=== PATIENT | female | born 1980 | race Caucasian/White ===

== ENCOUNTER 2020-09-01 21:05 | Observation (INO) | payer OTHER, SELFPAY ==
[2020-09-01] VITALS (11 sets, daily range): BP systolic 85–127; BP diastolic 49–74; PULSE 69–104; RESP 14–19; TEMP 35.7–36.8; O2SAT 96–100; BMI 27.4
--- NOTE | 2020-09-01 21:20 | US_ITS ---
EXAM: US PELVIS TRANSABDOMINAL, COMPLETE : 1980 CLINICAL INDICATION: Vaginal bleeding w/ clots Had miscarriage 4 weeks ago at 14 weeks TECHNIQUE: Transabdominal pelvic ultrasound was performed with grayscale and color Doppler imaging. This report was created using [employer] report [employer] technology. COMPARISON: None. FINDINGS: UTERUS/CERVIX: Uterus measures 12.7 x 6.8 x 8.5 cm. The endometrium is distended with fluid. This fluid collection measures roughly 8.9 x 2.8 x 2.6 cm. There is a small amount of fluid within the cervix. Anteverted. There is no uterine mass. RIGHT OVARY: The right ovary measures 5.3 x 3.4 x 4.3 cm. Blood flow is present in the right ovary. LEFT OVARY: The left ovary is not visualized. FREE FLUID: There is fluid within the cul-de-sac. BLADDER: The bladder measures 6.4 x 2.8 x 9.6 cm. OTHER FINDINGS: There is a 4.0 x 2.7 x 3.2 cm anechoic structure compatible with a cyst. US/Transvaginal Non- IMPRESSION: 1. Fluid distending the endometrium. 2. Anechoic structure in the right ovary compatible with a cyst. Left ovary was not visualized. at 2244 Reported and signed by: Roel Espinoza MD Electronically Signed: Roel Espinoza MD at 22:43 EDT Tel , Service support ,
--- NOTE | 2020-09-01 21:36 | ED.VIS.FEGU ---
HPI HPI - Female History of Present Illness Chief Complaint: Vag Bleeding Informant: patient Pain Pain: Positive for Pelvic Pain Onset: Today Timing: Continuous Quality: Positive for Cramping Location: Suprapubic Bleeding Issue: Positive for Vaginal bleeding and Passing clots Onset: Today Context: Sudden Onset Timing: Continuous Current Severity: Heavy Associated Symptoms P: 10 Ab: 4 Narrative Narrative: Patient presents with vaginal bleeding that became severe today. Patient had a recent miscarriage 4 weeks ago. Patient states she was pulling weeds today. Patient states that later she started having heavy vaginal bleeding. Patient states she is passing clots. 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 Patient denies any dysuria. Patient admits to some lower abdominal cramping. Patient states she does not know her blood type but knows that she does not need the RhoGam shot. PFSH PFSH Home Medications NK 09/01/20 [History Last Taken Unknown] Allergy/AdvReac Type Severity Reaction Status Date / Time No Known Allergies Allergy Verified 09/01/20 21:13 Surgical History (Updated 09/01/20 @ 23:[address] Nicole Leach MD) History of D&C History of salpingectomy Social History Smoking Status: Never smoker ROS ROS ED Constitutional Constitutional ED: Denies chills or fever(s) Eyes Eyes: Denies blurry vision or change in vision ENT ENT ED: Denies rhinorrhea or sore throat Cardiovascular Cardiovascular: Denies chest pain or palpitations Respiratory/Chest Respiratory/Chest: Denies cough or dyspnea Gastrointestinal Gastrointestinal: Reports abdominal pain; Denies nausea or vomiting Genitourinary Genitourinary ED: Denies dysuria or urinary frequency Musculoskeletal Musculoskeletal: Denies back pain or neck pain Integumentary Denies abscess or rash Neurologic Neurologic: Denies headache(s) or weakness Allergic/Immunologic Allergic/Immunologic ED: Denies mouth swelling or urticaria EXAM Physical Exam Const Vital Signs: 09/01/20 21:10 09/01/20 21:45 09/01/20 22:57 Temperature 96.7 F L Temperature Source Oral Pulse Rate 104 H 99 69 Respiratory Rate 14 16 17 Blood Pressure 127/74 H 104/49 L 85/51 L Blood Pressure Mean 91 67 62 Pulse Ox 96 100 100 Oxygen Delivery Method Room Air Room Air Nasal Cannula Oxygen Flow Rate (L/min) 2 09/01/20 23:04 Temperature Temperature Source Pulse Rate 87 Respiratory Rate 16 Blood Pressure 99/62 Blood Pressure Mean 74 Pulse Ox 100 Oxygen Delivery Method Nasal Cannula Oxygen Flow Rate (L/min) 2 Positive well nourished and well developed General Appearance ED: well developed HEENT Reports moist mucous membranes Neck supple and no JVD Resp normal respiratory effort and clear to auscultation bilaterally Cardio regular rate and regular rhythm GI soft to palpation and non-distended Palpation: tender LLQ, RLQ and suprapubic; Negative for guarding Neuro oriented x3, CN's II-XII intact bilaterally and no sensory deficits noted Sensorium / Orientation: alert Motor Exam: strength 5/5 throughout Psych mental status grossly normal MDM MDM MDM Narrative Medical decision making narrative: Patient was given IV fluids. CBC shows a hemoglobin of 10.3 hematocrit 32.3. Platelets were 141. PT with INR and PTT were normal. Comprehensive metabolic profile was essentially within normal limits. Quantitative hCG was 230. Blood type is A-. Ultrasound showed fluid distending the endometrium and a right ovarian cyst. After ultrasound was obtained, patient passed a large clot and tissue. Patient states she was feeling better after this and her cramping was improving. Case was discussed with Dr. Nicole Leach. She was in to evaluate the patient. She will take the patient for D&C. Patient understood and was agreeable with the plan. All questions were answered. Lab Data Attestation: I reviewed the patient's lab results. Labs: Laboratory Results - last 24 hr 09/01/20 09/01/20 09/01/20 21:25 21:25 21:35 WBC 6.2 RBC 3.58 L Hgb 10.3 L Hct 32.3 L MCV 90.2 MCH 28.8 MCHC 31.9 L RDW Std Deviation 42.1 RDW Coeff of Priyanka 12.7 Plt Count 141 L MPV 10.5 Immature Gran % (Auto) 0.300 Neut % (Auto) 61.3 Lymph % (Auto) 29.1 [place] % (Auto) 6.9 Eos % (Auto) 2.1 Baso % (Auto) 0.3 Absolute Neuts (auto) 3.8 Absolute Lymphs (auto) 1.81 Nucleated RBC % 0 PT 13.3 INR 1.1 APTT 27.0 Sodium 139 Potassium 3.4 L Chloride 109 H Carbon Dioxide 22.0 Anion Gap 8 BUN 19 H Creatinine 0.62 Estim Creat Clear Calc 107.45 Est GFR (MDRD) Af Amer 136 Est GFR (MDRD) Non-Af 112 BUN/Creatinine Ratio 30.5 H Glucose 124 H Calcium 8.0 L Total Bilirubin 0.30 AST 11 L ALT 14 Alkaline Phosphatase 39 L Total Protein 6.6 Albumin 3.4 Globulin 3.2 Albumin/Globulin Ratio 1.1 HCG, Quant Blood Type Antibody Screen Crossmatch 09/01/20 09/01/20 09/01/20 21:35 21:35 21:35 WBC RBC Hgb Hct MCV MCH MCHC RDW Std Deviation RDW Coeff of Priyanka Plt Count MPV Immature Gran % (Auto) Neut % (Auto) Lymph % (Auto) [place] % (Auto) Eos % (Auto) Baso % (Auto) Absolute Neuts (auto) Absolute Lymphs (auto) Nucleated RBC % PT INR APTT Sodium Potassium Chloride Carbon Dioxide Anion Gap BUN Creatinine Estim Creat Clear Calc Est GFR (MDRD) Af Amer Est GFR (MDRD) Non-Af BUN/Creatinine Ratio Glucose Calcium Total Bilirubin AST ALT Alkaline Phosphatase Total Protein Albumin Globulin Albumin/Globulin Ratio HCG, Quant 230 H Blood Type A NEGATIVE Antibody Screen NEGATIVE Crossmatch See Detail Radiography Diagnostic Testing: Radiology Impression Transvaginal US 09/01/20 21:20 IMPRESSION: 1. Fluid distending the endometrium. 2. Anechoic structure in the right ovary compatible with a cyst. Left ovary was not visualized. at 2244 Reported and signed by: Roel Espinoza MD Electronically Signed: Roel Espinoza MD at 22:43 EDT Tel , Service support , Treatment and Re-Evaluation Vital Sign Attestation:: Vital signs were reviewed prior to admission. They are stable. Discharge Plan Dx/Rx/DC Orders Clinical Impression: Incomplete spontaneous complicated by delayed or excessive hemorrhage, Acute blood loss anemia Disposition Disposition: [facility]
[2020-09-01 21:40] LABS: Absolute Lymphocyte Count 1.81 X10^3/uL (0.83-4.51); Absolute Neutrophil Count 3.8 X10^3/uL (2.0-7.7); Basophil# 0.02 X10^3/uL; Basophil% 0.3 % (0-1); Eosinophil# 0.13 X10^3/uL; Eosinophils% 2.1 % (0-5); Hematocrit 32.3 % (37-47); Hemoglobin 10.3 g/dL (12.0-15.0); Lymphocyte # 1.81 X10^3/ul (0.83-4.51); Lymphocyte % 29.1 % (19-41); Mean Corp Hgb Conc 31.9 g/dL (32-36); Mean Corpuscular Hgb 28.8 pg (27.0-32.0); Mean Corpuscular Volume 90.2 fL (81-99); Mean Platelet Vol. 10.5 fl (6.2-12.0); Monocyte# 0.43 X10^3/uL; Monocyte% 6.9 % (0-10); NRBC Flagged by Analyzer 0 % (0-5); Neutrophil # 3.81 X10^3/uL (2.7-7.7); Neutrophil % 61.3 % (47-70); Platelet Count 141 K/mm3 (150-450); RBC Distribution Width CV 12.7 % (11.6-14.6); RBC Distribution Width SD 42.1 fl (35.1-43.9); Red Blood Count 3.58 M/mm3 (4.2-5.4); White Blood Count 6.2 K/mm3 (4.4-11.0)
[2020-09-01] MEDS: 0.9% Normal Saline 1,000 ML 1000 ML IV (21:44)
[2020-09-01 22:00] LABS: ALB/GLOB Ratio 1.1 RATIO (0.9-2.4); AST(SGOT) 11 U/L (15-37); Alanine Aminotransfer ALT/SGPT 14 U/L (13-56); Albumin, Serum 3.4 g/dL (3.2-5.0); Alkaline Phosphatase 39 U/L (45-117); Anion Gap 8 (5-15); BUN 19 mg/dL (7-18); BUN/Creat Ratio 30.5 RATIO (10-20); Chloride 109 mmol/L (98-107); Creatinine, Serum 0.62 mg/dL (0.55-1.02); EST Glomerular Filtration Rate 112 mL/min (>60); Est Glom Filt Rate - Afr Amer 136 mL/min (>60); Estimated Creatinine Clearance 107.45 ml/min; Globulin 3.2 g/dL (2.2-4.2); Glucose 124 mg/dL (74-106); Potassium 3.4 mmol/L (3.5-5.1); Protein, Total 6.6 g/dL (6.4-8.2); Sodium Level 139 mmol/L (136-145)
[2020-09-01 22:07] LABS: hCG Titer Quant., Serum 230 mIU/mL (1-3)
[2020-09-01 22:09] LABS: International Normalized Ratio 1.1; Prothrombin Time (Protime)PT. 13.3 SECONDS (11.7-14.9)
[2020-09-01] MEDS: 0.9% Normal Saline 1,000 ML 999 ML IV ×2 (23:02→23:04)
--- NOTE | 2020-09-01 23:09 | HP.PCM.OB_ITS ---
HPI - General General Date of Admission: 09/02/20 HPI Narrative ASIM BOWLING, is a 40 F 14 para 10 who presents with heavy vaginal bleeding. She reports approximately 14-week gestation followed by a loss about 4 weeks ago with heavy vaginal bleeding which subsequently resolved. Following gardening today she reported onset of heavy vaginal bleeding. She reports lightheadedness and feeling hot. PFSH Home Medications ferrous sulfate 325 mg PO BID #30 tab 09/02/20 [Rx Last Taken Unknown] Allergy/AdvReac Type Severity Reaction Status Date / Time No Known Allergies Allergy Verified 09/01/20 21:13 Surgical History History of D&C History of salpingectomy Social History Smoking Status: Never smoker History 14 Elective abortions Hx Para 10 Spontaneous abortions 3 Hx # Term Pregnancies Ectopic pregnancies 1 Hx # Pregnancies Multiple births # of living children 10 Vital Signs Vital Signs Vital Signs: 09/01/20 21:10 09/01/20 21:45 09/01/20 22:57 Temperature 96.7 F L Temperature Source Oral Pulse Rate 104 H 99 69 Respiratory Rate 14 16 17 Blood Pressure 127/74 H 104/49 L 85/51 L Blood Pressure Mean 91 67 62 Pulse Ox 96 100 100 Oxygen Delivery Method Room Air Room Air Nasal Cannula Oxygen Flow Rate (L/min) 2 09/01/20 23:04 Temperature Temperature Source Pulse Rate 87 Respiratory Rate 16 Blood Pressure 99/62 Blood Pressure Mean 74 Pulse Ox 100 Oxygen Delivery Method Nasal Cannula Oxygen Flow Rate (L/min) 2 Weight Weight: 74.843 kg Body Mass Index (BMI) 27.4 Physical Exam Const alert, oriented x3 and no apparent distress General Appearance: anxious Cardio regular rate and regular rhythm GI soft to palpation, non-tender, non-distended and no masses Speculum Exam - Vagina: other Copious blood and clot within the vaginal vault, tissue extruding through the cervical os Uterus Palpation: other OB Nontender Extremity normal to inspection Labs Labs Labs: Blood Type A NEGATIVE Antibody Screen NEGATIVE Hct 24.5 % (37-47) L Hgb 8.3 g/dL (12.0-15.0) L Assessment & Plan (1) Incomplete spontaneous complicated by delayed or excessive hemorrh age: COMMENT: Plan suction D&C (2) Acute blood loss anemia: PLAN: Hemodynamic instability Transfuse packed RBC Strongly recommended suction dilation and curettage. Procedural risks, benefits, indications were reviewed. Patient and given opportunity to ask questions and they agree to proceed. (3) RhD negative: COMMENT: Patient A-, reports he is O-. No Rhogam
--- NOTE | 2020-09-01 23:45 | POC_PTH ---
PATIENT: ASIM BOWLING LOC: MS3 U#:[id number] AGE/SX: 40/F ROOM: [facility] [place] RE09/02/[address]: Dr. Nicole Leach MD : 1980 BED: 1 DIS: 09/02/2020 SPEC #: [id number] RECD: 09/02/20 08:00 STATUS: LENORE PARRISH #: [id number] BJORN: 09/01/20 23:[address]: Nicole Senior DEPT: SURGICAL PATHOLOGY RECD BY: Richard Barahona ENTERED: 09/02/20 11:20 SP TYPE: PROD CONC OTHR DR: Dr. Eloy Rutherford DO Tissues: Product of conception, NOS Procedures: Surgery Specimen Level IV HEADER OPERATION: Suction dilation and curettage PRE-OP DIAGNOSIS: Incomplete spontaneous complicated by delayed or excessive hemorrhage, acute blood loss anemia TISSUE SUBMITTED: Products of conception MICROSCOPIC DIAGNOSIS Endometrium, curettage: Chorionic villi, decidualized stroma and trophoblastic cells consistent with products of conception. AM:spenser 09/03/2020 MICROSCOPIC DESCRIPTION Slides are reviewed. GROSS DESCRIPTION Received in fixative is one container labeled with the patient's name and designated products of conception. The specimen consists of a gestational sac measuring 10 x 5.5 x 4 cm. Also present in the container are multiple fragments of blood clot mixed with linda soft tissue measuring in aggregate 6 x 4.5 x 2 cm. The gestational sac is filled with clear fluid. No tissue is identified. Computer Assistant sections from gestational sac are submitted in three cassettes. / SJ:spenser 09/02/20 TC:5 CPT: 79929
[2020-09-02] VITALS (15 sets, daily range): BP systolic 92–114; BP diastolic 49–75; PULSE 74–139; RESP 15–16; TEMP 36.4–37.1; O2SAT 98–100; BMI 27.4
[2020-09-02] MEDS: Lidocaine 1% (20 ml mdv) 20 ML Vial (00:12)
[2020-09-02] MEDS: Methylergonovine 0.2 MG/ML Ampul IM (00:29)
--- NOTE | 2020-09-02 00:40 | OP.PCM_ITS ---
Problems Associated Problem List Diagnoses (1) Acute blood loss anemia: (2) Incomplete spontaneous complicated by delayed or excessive hemor rhage: Report of Operation Date of Procedure: 09/01/20 Pre-Operative Diagnosis: 1. Incomplete spontaneous with hemorrhage 2. Acute blood loss anemia Post-Operative Diagnosis: 1. Incomplete spontaneous with hemorrhage 2. Acute blood loss anemia Surgery/Procedure Performed:: Suction dilation and curettage Description of Surgical Findings:: Approximately 14-week size uterus Surgeon: Nicole Senior Type of Anesthesia: Local MAC Anesthesiologist: Cody Cook Specimen's removed: Products of conception Estimated Blood Loss (mL): 30 Fluids Replaced: 600 mL Description of Procedure: Patient is a 40-year-old 14 para 10 with a history of recent 14-week spontaneous approximately 4 weeks prior. She presented to the emergency room with heavy vaginal bleeding, had a positive quantitative hCG with anemia and hemodynamic instability. Blood transfusion was administered and she was advised to proceed with suction dilation curettage. Procedural risks, benefits and indications were reviewed and informed consent was obtained. Patient and her agreed to proceed. Procedure: Patient was brought to the operating room and sinus performed. She is placed in the dorsal supine position and induced under MAC. She was repositioned into dorsal lithotomy. Perineum was prepped then draped in sterile fashion. Patient was placed in the high lithotomy and speculum was placed into the vagina. The cervix was grasped the anterior cervical lip using a single- tooth tenaculum. A paracervical block was placed with a total of 20 cc of 1% lidocaine without epinephrine. Suction curettage was performed using a 12 mm curved curette initially but was subsequently upsized to 14 mm curved curette with further retrieval of products of conception. Sharp curettage was performed. The fundus was firm in the uterus involuted with improvement of bleeding. The procedure was complete. The tenaculum was removed from the cervix and the speculum removed from the vagina. The patient was placed into dorsal supine, awakened, transferred to the recovery room without complication. Sponge counts were correct x2. Findings: Cervix was dilated approximately 2 cm. Complications None Admit VTE Documentation VTE Present on Admission: No VTE Mechan Device Prophylaxis: SCD's VTE Pharm Prophylaxis ordered?: No
[2020-09-02] MEDS: Lactated Ringers 1,000 ML 100 ML IV ×2 (02:02→11:35)
[2020-09-02] MEDS: Ketorolac 30 MG/ML Syringe IV (02:07)
[2020-09-02 03:41] LABS: Anion Gap 8 (5-15); BUN 11 mg/dL (7-18); BUN/Creat Ratio 28.1 RATIO (10-20); Calcium,Total 6.8 mg/dL (8.5-10.1); Chloride 117 mmol/L (98-107); Creatinine, Serum 0.39 mg/dL (0.55-1.02); EST Glomerular Filtration Rate 191 mL/min (>60); Est Glom Filt Rate - Afr Amer 232 mL/min (>60); Estimated Creatinine Clearance 170.82 ml/min; Glucose 135 mg/dL (74-106); Sodium Level 142 mmol/L (136-145)
[2020-09-02 07:27] LABS: Absolute Lymphocyte Count 0.77 X10^3/uL (0.83-4.51); Basophil# 0.01 X10^3/uL; Basophil% 0.2 % (0-1); Eosinophil# 0.03 X10^3/uL; Eosinophils% 0.6 % (0-5); Hematocrit 22.8 % (37-47); Hemoglobin 7.6 g/dL (12.0-15.0); Lymphocyte # 0.77 X10^3/ul (0.83-4.51); Lymphocyte % 14.8 % (19-41); Mean Corp Hgb Conc 33.3 g/dL (32-36); Mean Corpuscular Hgb 29.2 pg (27.0-32.0); Mean Corpuscular Volume 87.7 fL (81-99); Mean Platelet Vol. 10.4 fl (6.2-12.0); Monocyte# 0.32 X10^3/uL; Monocyte% 6.2 % (0-10); NRBC Flagged by Analyzer 0 % (0-5); Neutrophil # 4.04 X10^3/uL (2.7-7.7); Neutrophil % 77.8 % (47-70); Platelet Count 120 K/mm3 (150-450); RBC Distribution Width CV 12.6 % (11.6-14.6); RBC Distribution Width SD 40.4 fl (35.1-43.9); White Blood Count 5.2 K/mm3 (4.4-11.0)
[2020-09-02 07:53] LABS: Anion Gap 4 (5-15); BUN 8 mg/dL (7-18); BUN/Creat Ratio 18.6 RATIO (10-20); Calcium,Total 7.3 mg/dL (8.5-10.1); Chloride 115 mmol/L (98-107); Creatinine, Serum 0.43 mg/dL (0.55-1.02); EST Glomerular Filtration Rate 172 mL/min (>60); Est Glom Filt Rate - Afr Amer 209 mL/min (>60); Estimated Creatinine Clearance 154.93 ml/min; Glucose 115 mg/dL (74-106); Potassium 3.7 mmol/L (3.5-5.1); Sodium Level 141 mmol/L (136-145)
[2020-09-02 16:53] LABS: Absolute Lymphocyte Count 1.08 X10^3/uL (0.83-4.51); Absolute Neutrophil Count 2.8 X10^3/uL (2.0-7.7); Basophil# 0.01 X10^3/uL; Basophil% 0.2 % (0-1); Eosinophil# 0.08 X10^3/uL; Eosinophils% 1.9 % (0-5); Hematocrit 24.5 % (37-47); Hemoglobin 8.3 g/dL (12.0-15.0); Lymphocyte # 1.08 X10^3/ul (0.83-4.51); Lymphocyte % 25.5 % (19-41); Mean Corp Hgb Conc 33.9 g/dL (32-36); Mean Corpuscular Hgb 29.9 pg (27.0-32.0); Mean Corpuscular Volume 88.1 fL (81-99); Mean Platelet Vol. 10.6 fl (6.2-12.0); Monocyte% 7.1 % (0-10); NRBC Flagged by Analyzer 0 % (0-5); Neutrophil # 2.75 X10^3/uL (2.7-7.7); Neutrophil % 65.1 % (47-70); Platelet Count 122 K/mm3 (150-450); RBC Distribution Width SD 41.7 fl (35.1-43.9); Red Blood Count 2.78 M/mm3 (4.2-5.4); White Blood Count 4.2 K/mm3 (4.4-11.0)
--- NOTE | 2020-09-02 17:26 | PCM.DC ---
Discharge Instructions Diet Discharge Diet: No restrictions Activity Discharge Activity: Return to Normal Activity and May Shower May resume sexual activity in: 4 weeks Dressing / Incision Call your doctor if you observe: Fever of 101 or Higher, Using more than one pad per hour, Shortness of breath, Chest pain, Calf discomfort and Uncontrolled pain Follow Up Care Please Follow Up With: Nicole Leach MD When: 2 weeks Test Results: Test results from this visit will be discussed in further detail at your follow-up appointment, if applicable. Discharge Plan Admission Admit Date/Time: 09/02/20 01:46 Primary Reason for Your Visit: Hemorrhage, Anemia Attending Provider: Nicole Senior Primary Care Provider: Eloy Rutherford Instructions Patient Instructions: Anemia, ED MISCARRIAGE Incomplete Discharge Orders/Prescriptions Prescriptions: New ferrous sulfate 325 mg (65 mg iron) tablet 325 mg PO BID Qty: 30 RF: 0 Referrals / Follow Up: Eloy Rutherford DO [Primary Care Provider] - Nicole Senior MD [STAFF PHYSICIAN] - Disposition Disposition (needs filled in before D/C Order can be placed): Home, self care
[2020-09-02] MEDS: 0.9% Saline Lock 10 ML Syringe IV (21:14)
== END 2020-09-02 21:40 | disposition home or self-care (01) ==
LOC: ED 23:26 → MS3 23:52
PROVIDERS: Admitting Provider Obstetrics & Gynecology; Emergency Provider Emergency Medicine; PCP Family Medicine; Visit Provider Obstetrics & Gynecology
PROC: (CPT 59812; principal; 2020-09-01 23:45)
DX: O03.1 Delayed or excessive hemorrhage following incomplete spontaneous abortion (principal); D62 Acute posthemorrhagic anemia
CPT/HCPCS: 01965; 59812; 36415; 36430; 76830; 80048; 80053; 84702; 85025; 85610; 85730; 86850; 86900; 86901; 86920; 88305; 96361; 96374; 99218; 99285; J7030; J7040; J7120; P9016; P9040; A4216; G0378

== ENCOUNTER → 2020-09-09 14:59 | Outpatient (CLI) | payer OTHER, SELFPAY ==
[2020-09-02 01:46] VITALS: BMI 27.4
[2020-09-09 15:36] LABS: Hematocrit 30.1 % (37-47); Hemoglobin 9.8 g/dL (12.0-15.0)
== END ==
PROVIDERS: PCP Family Medicine; Visit Provider Obstetrics & Gynecology
DX: D64.9 Anemia, unspecified (principal)
CPT/HCPCS: 36415; 85014; 85018